=== PATIENT | male | born 1945 | race Caucasian/White ===

== ENCOUNTER → 2017-02-10 | Outpatient (CLI) | payer OTHER ==
[~2017-02-10] MED LIST: IOPAMIDOL (ISOVUE 370) 100 ML BTL IV ONE
== END ==
LOC: FIMAGING 10:05
PROVIDERS: ATTEND Surgery
DX: I71.4 Abdominal aortic aneurysm, without rupture (principal); Z98.890 Other specified postprocedural states; I51.7 Cardiomegaly; D73.89 Other diseases of spleen; K40.90 Unilateral inguinal hernia, without obstruction or gangrene, not specified as recurrent
CPT/HCPCS: 74174; Q9967

== ENCOUNTER 2017-03-15 11:51 | Day surgery (SDC) | payer OTHER ==
[2017-03-15 13:40] VITALS: PULSE 70; RESP 18
--- NOTE | 2017-03-15 13:45 | PDPROPOC ---
Sedation Plan of Care Sedation Plan of Care: vital signs stable, mental status noted, patient educated of risks, benefits, alternatives, patient can tolerate sedation ASA Classification: ASA 3 Planned drugs: fentanyl, midazolam Mallampati Score: Class 1 Mallampati Reference Image: Patient passed 3-3-2 rule?: Yes
--- NOTE | 2017-03-15 13:57 | PDGENHP ---
History & Physical Chief Complaint: AAA History of Present Illness: PATIENT HAS HAD AORTIC STENTGRAFT REPAIR. S/P SAC EMBOLIZATION. NOW ANEURYSM IS STILL GROWING. CTA NOT IDENTIFYING LEAK. HERE FOR ANGIOGRAM AND POSSIBLE EMBOLIZATION. Pertinent Past, Social, Family History: N/A Relevant Physical Exam: LT INGUINAL HERNIA, NO ACCESS FROM LT. RT GROIN ACCESS FOR VISCERAL ANGIOGRAM. Cardiorespiratory Assessment: CTA, RRR. TEMP 99.3
[2017-03-15] MEDS ORDERED: MEPERIDINE 25 MG/ML SYR IVP PRN (14:19)
[2017-03-15] MEDS ORDERED: fentaNYL 100 MCG/2 ML INJ IVP PRN (14:19)
[2017-03-15] MEDS ORDERED: MIDAZOLAM 2 MG/2 ML VIAL IVP PRN (14:19)
[2017-03-15] MEDS ORDERED: FLUMAZENIL 0.5 MG/5 ML MDV IVP PRN (14:19)
[2017-03-15] MEDS ORDERED: NALOXONE HCL 0.4 MG/ML INJ IVP PRN (14:19)
[2017-03-15] MEDS ORDERED: IOPAMIDOL (ISOVUE-300) 100 ML BTL ONE ×3 (14:20→17:10)
[2017-03-15] MEDS ORDERED: MIDAZOLAM 2 MG/2 ML VIAL ONE ×2 (14:23→16:22)
[2017-03-15] MEDS ORDERED: fentaNYL 100 MCG/2 ML INJ ONE ×2 (14:23→16:21)
[2017-03-15] MEDS ORDERED: NS 1,000 ML IV SCH (14:30)
[2017-03-15] MEDS ORDERED: ONDANSETRON 4 MG/2 ML VIAL IVP PRN (17:10)
[2017-03-15] MEDS ORDERED: OXYCODONE/APAP 5/325 TAB PO PRN (17:10)
--- NOTE | 2017-03-15 17:10 | PDRADPN ---
Radiology Procedure Note Date of Procedure: 03/15/17 Radiologist: Angie Sharpe Anesthesia: IV Sedation (FENTANYL AND VERSED) Pre-op Diagnosis: AAA Post-op Diagnosis: ENDOLEAK Indication: ENLARGING AAA AFTER PREVIOUS STENTGRAFT REPAIR AT OUTSIDE HOSPITAL Procedure: ANGIOGRAM WITH EMBOLIZATION Finding(s): ONE LUMBAR ARTERY FED FROM RT IIA THAT WENT TO THE SAC. NO LEAK SEEN, BUT THIS MAY BE A DRAINING ARTERY. EMBOLIZED. SMA ANGIOGRAM AND AORTOGRAM ALL NEGATIVE. Inf/Abcess present in the surg proc area at time of surgery?: No EBL: Minimal Complications: NONE
[2017-03-15 18:19] VITALS: TEMP 97
[2017-03-15 20:05] VITALS: BP 106/63; O2SAT 90
== END 2017-03-15 20:11 | disposition home or self-care (01) ==
LOC: FIMAGING 11:51
PROVIDERS: ATTEND Surgery
PROC: B4101ZZ Fluoroscopy of Abdominal Aorta using Low Osmolar Contrast (ICD-10-PCS; principal; 2017-03-15 17:03)
PROC: 04LE3DZ Occlusion of Right Internal Iliac Artery with Intraluminal Device, Percutaneous Approach (ICD-10-PCS; principal; 2017-03-15 17:03)
PROC: B41FZZZ Fluoroscopy of Right Lower Extremity Arteries (ICD-10-PCS; principal; 2017-03-15 17:03)
DX: T82.330A Leakage of aortic (bifurcation) graft (replacement), initial encounter (principal)
CPT/HCPCS: 36245; 36246; 37242; 75625; 99152; 99153; C1769; C1894; J1644; J2250; J3010; Q9967

== ENCOUNTER 2017-05-10 05:57 | Day surgery (SDC) | payer OTHER ==
[2017-05-10] MEDS ORDERED: LR 1,000 ML IV ONE (06:37)
[2017-05-10 06:43] VITALS: PULSE 88
[2017-05-10] MEDS ORDERED: BUPIVACAINE/EPI 0.5% 30 ML SDV ONE ×2 (06:51→07:24)
[2017-05-10] MEDS ORDERED: LIDOCAINE 1% 300 MG/30 ML SDV ONE (06:52)
--- NOTE | 2017-05-10 07:01 | PDANEPAE ---
ANE History of Present Illness Left ing hernia ANE Past Medical History - Cardiovascular History Hx Hypertension: Yes Hx Arrhythmias: Yes Hx Chest Pain: No Hx Coronary Artery / Peripheral Vascular Disease: Yes Hx CHF / Valvular Disease: Yes Hx Palpitations: No Cardiovascular History Comment: 'Mitral valvue does not close properly'; A Fib. - Pulmonary History Hx COPD: No Hx Asthma/Reactive Airway Disease: No Hx Recent Upper Respiratory Infection: No Hx Oxygen in Use at Home: No Hx Sleep Apnea: Yes Sleep Apnea Screening Result - Last Documented: Positive Pulmonary History Comment: Sleep apnea-wears CPAP every night. - Neurologic History Hx Cerebrovascular Accident: No Hx Seizures: No Hx Dementia: No - Endocrine History Hx Diabetes: No - Renal History Hx Renal Disorders: No - Liver History Hx Hepatic Disorders: No - Neurological & Psychiatric Hx Hx Neurological and Psychiatric Disorders: No - Cancer History Hx Cancer: No - Congenital Disorder History Hx Congenital Disorders: No - GI History Hx Gastrointestinal Disorders: Yes Gastrointestinal History Comment: Hiatal hernia repair. GERD - Chronic Pain History Chronic Pain: Yes (arthritis R knee) - Surgical History Prior Surgeries: -hernia repair x 6- 'mesh put in 15 years ago'. -01/15-3.5 in aneurysm repair. -08/1650-znzabvjov-pdjxzqfa repair. Cardioversion 01/16 ANE Review of Systems Review of Systems: - Exercise capacity METS (RN): 3 METS - Systems Cardiac: Reports: irregular heart rate ANE Patient History - Allergies Allergies/Adverse Reactions: Penicillins Allergy (Unknown, Verified 03/08/17 17:20) Unknown - Home Medications Home Medications: Furosemide mg PO BID 03/08/17 [Last Taken 05/09/17] Metoprolol Tartrate mg PO BID 03/08/17 [Last Taken 03/15/17 07:00] Potassium meq PO BID 03/08/17 [Last Taken 03/15/17 07:00] Warfarin Sodium mg PO DAILY 03/08/17 [Last Taken 05/05/17] - NPO status NPO Since - Liquids (Date): 05/09/17 NPO Since - Liquids (Time): 18:00 NPO Since - Solids (Date): 05/09/17 NPO Since - Solids (Time): 18:00 - Anes Hx Anes Hx: no prior problems - Smoking Hx Smoking Status: Former smoker - Family Anes Hx Family Hx Anesthesia Complications: None ANE Labs/Vital Signs - Vital Signs Blood Pressure: 138/76 Heart Rate: 88 Respiratory Rate: 18 O2 Sat (%): 92 Height: 182.88 cm Weight: 117.934 kg ANE Physical Exam - Airway Neck exam: decreased ROM Mallampati Score: Class 3 Mouth exam: dentures (lower incisors) - Pulmonary Pulmonary: no respiratory distress - Cardiovascular Cardiovascular: irregularly irregular - ASA Status ASA Status: IV ANE Anesthesia Plan Anesthesia Plan: GA w LMA (Plan MAC with possible GA), MAC
--- NOTE | 2017-05-10 07:07 | PDHPUP ---
History & Physical Update H&P update statement: This history and physical update is based on an assessment of the patient which was completed after admission or registration (within 24 hours), but prior to the surgery/procedure. H&P update: H&P reviewed & patient examined, no change in patient's condition since H&P completed
[2017-05-10] MEDS ORDERED: MIDAZOLAM 2 MG/2 ML VIAL ONE (07:09)
--- NOTE | 2017-05-10 07:09 | POSTOPPROG ---
Post Op Note Date of Operation: 05/10/17 Surgeon: Waldemar Toussaint Anesthesiologist: Zen Anesthesia: IV Sedation Pre-op Diagnosis: LIH Post-op Diagnosis: Same Procedure: Open LIH with plug and patch Findings: difficult exposure secondary to obesity, pantaloon defect Inf/Abcess present in the surg proc area at time of surgery?: No EBL: Minimal Complications: no immediate Specimen(s): none
[2017-05-10] MEDS ORDERED: LIDO/EPI 1% **for epidural** 10 ML SDV ONE (07:10)
[2017-05-10] MEDS ORDERED: ceFAZolin 2 GM/DEXTROSE 100 ML IV ONE (07:15)
[2017-05-10] MEDS ORDERED: fentaNYL 100 MCG/2 ML INJ ONE (07:18)
[2017-05-10] MEDS ORDERED: PROPOFOL/EMULSION 500 MG/50 ML BOTTLE IV ONE (07:18)
[2017-05-10] MEDS ORDERED: LIDO/EPI 1% **for epidural** 30 ML SDV ONE ×2 (07:24→08:59)
[2017-05-10] MEDS ORDERED: ceFAZolin 1 GM VIAL ONE ×2 (07:25)
[2017-05-10] MEDS ORDERED: ceFAZolin 2 GM/SWFI 2 GM/20 ML SYR IVP ONE (07:30)
[2017-05-10] MEDS ORDERED: PROPOFOL 200 MG/20 ML VIAL ONE ×3 (07:46→08:26)
[2017-05-10] MEDS ORDERED: HYDROmorphONE/DILAUDID 1 MG/ML INJ IVP PRN (07:58)
[2017-05-10] MEDS ORDERED: fentaNYL 100 MCG/2 ML INJ IVP PRN (07:58)
[2017-05-10] MEDS ORDERED: NALOXONE HCL 0.4 MG/ML INJ IVP PRN ×2 (07:58→08:58)
[2017-05-10] MEDS ORDERED: ONDANSETRON 4 MG/2 ML VIAL IVP PRN (07:58)
[2017-05-10] MEDS ORDERED: ONDANSETRON 4 MG/2 ML VIAL ONE (08:28)
--- NOTE | 2017-05-10 09:02 | POSTANESTH ---
Post Anesthetic Evaluation Cardiovascular Status: Similar to Pre-Op Cond Respiratory Status: Similar to Pre-op Cond. Level of Consciousness/Mental Status: Can Participate in Eval Pain Control: Adequate, Prn Tx Ordered Nausea/Vomiting Control: Adequate, Prn Tx Ordered Complications Possibly Related to Anesthesia: None Noted
[2017-05-10 09:43] VITALS: RESP 18
[2017-05-10 11:47] VITALS: BP 108/59; O2SAT 92
[2017-05-10 11:59] VITALS: TEMP 98.2
--- NOTE | 2017-05-10 12:25 | GOP ---
[f rep st] OPERATIVE REPORT DATE OF OPERATION: 05/10/2017 SURGEON: Waldemar Toussaint MD ANESTHESIA: MAC ANESTHESIOLOGIST: Waldemar Zaldivar MD PREOPERATIVE DIAGNOSIS: Left inguinal hernia. POSTOPERATIVE DIAGNOSIS: Left inguinal hernia. PROCEDURE PERFORMED: Open left inguinal herniorrhaphy with Marlex mesh plug and patch. FINDINGS: Pantaloon defect. INDICATIONS: 71-year-old obese male with a symptomatic left inguinal hernia. He is undergoing surgical repair at this time. Risks and benefits were explained of bleeding, infection, recurrence, as well as nerve and/or testicle injury. All questions were answered. He desires to proceed. DESCRIPTION OF PROCEDURE: Monitored anesthesia was started. The groin was infiltrated with 1% lidocaine and 0.5% Marcaine along the ilioinguinal nerve as well as the groin crease. A transverse incision was created toward the pubic tubercle. Subcutaneous tissues were divided down to the external oblique fascia. The external oblique fascia was opened through the external ring. The spermatic cord was circumferentially encompassed. There was a very large, chronic indirect sac inclusive of colon as well as omentum and tenia. The sac was skeletonized off the cord structures and reduced back toward the abdominal space. There was also evidence of a large direct space defect with protruding preperitoneal fat. This space was preperitonealized. An extra-large plug was placed into the indirect space and a large plug placed into the direct space. The onlay patch was secured to the pubic tubercle and secured to the shelving edge of the inguinal ligament as well as the conjoined tendon. Exposure was quite tedious given the patient's significant obesity. Excellent coverage of the inguinal floor was felt obtained upon completion. Satisfactory hemostasis was assured. The external oblique fascia was closed over the cord structures. The wound was closed in layers with absorbable sutures followed by Dermabond. The patient was taken to Recovery uneventfully. /[id number]/MODL MTDD
== END 2017-05-10 11:47 | disposition home or self-care (01) ==
LOC: FSGY 05:57
PROVIDERS: ATTEND Surgery
PROC: 0YU60JZ Supplement Left Inguinal Region with Synthetic Substitute, Open Approach (ICD-10-PCS; principal; 2017-05-10 07:15)
DX: K40.90 Unilateral inguinal hernia, without obstruction or gangrene, not specified as recurrent (principal); I71.4 Abdominal aortic aneurysm, without rupture; E66.9 Obesity, unspecified; Z68.35 Body mass index [BMI] 35.0-35.9, adult; I48.91 Unspecified atrial fibrillation; I50.9 Heart failure, unspecified; K21.9 Gastro-esophageal reflux disease without esophagitis; G47.33 Obstructive sleep apnea (adult) (pediatric); Z79.01 Long term (current) use of anticoagulants
CPT/HCPCS: C1781; J0171; J0690; J2250; J2405; J2704; J3010

== ENCOUNTER → 2017-05-31 | Outpatient (CLI) | payer OTHER ==
[~2017-05-31] MED LIST changes: -IOPAMIDOL (ISOVUE 370) 100 ML BTL IV ONE; +IOPAMIDOL (ISOVUE-370) 150 ML BTL IV ONE
== END ==
LOC: FIMAGING 08:00
PROVIDERS: ATTEND Surgery
DX: I71.4 Abdominal aortic aneurysm, without rupture (principal); R22.43 Localized swelling, mass and lump, lower limb, bilateral
CPT/HCPCS: 75635; Q9967

== ENCOUNTER → 2018-02-09 | Outpatient (CLI) | payer OTHER ==
[~2018-02-09] MED LIST changes: +IOPAMIDOL (ISOVUE 370) 100 ML BTL IV ONE; -IOPAMIDOL (ISOVUE-370) 150 ML BTL IV ONE
== END ==
LOC: FIMAGING 11:10
PROVIDERS: ATTEND Surgery
DX: I71.4 Abdominal aortic aneurysm, without rupture (principal)
CPT/HCPCS: 74174; Q9967

== ENCOUNTER 2018-02-23 07:12 | Day surgery (SDC) | payer OTHER ==
[2018-02-23 09:07] LABS: INR 1.21 (0.83-1.16); PROTIME(PATIENT) 15.5 SEC (12.0-15.0)
[2018-02-23] MEDS ORDERED: fentaNYL 100 MCG/2 ML INJ ONE (09:30)
[2018-02-23] MEDS ORDERED: MIDAZOLAM 2 MG/2 ML VIAL ONE (09:30)
[2018-02-23] MEDS ORDERED: FLUMAZENIL 0.5 MG/5 ML MDV IVP PRN (09:41)
[2018-02-23] MEDS ORDERED: NALOXONE HCL 0.4 MG/ML INJ IVP PRN (09:41)
[2018-02-23] MEDS ORDERED: GLUCAGON HCL 1 MG VIAL IVP PRN (09:41)
[2018-02-23] MEDS ORDERED: HEPARIN 10,000 UNIT/10 ML MDV (1,000 UNIT/ML) IVP PRN (09:41)
[2018-02-23] MEDS ORDERED: fentaNYL 100 MCG/2 ML INJ IVP PRN (09:41)
[2018-02-23] MEDS ORDERED: MIDAZOLAM 2 MG/2 ML VIAL IVP PRN (09:41)
[2018-02-23] MEDS ORDERED: ALTEPLASE 2 MG VIAL IVP PRN (09:41)
[2018-02-23] MEDS ORDERED: MEPERIDINE 25 MG/ML SYR IVP PRN (09:41)
[2018-02-23] MEDS ORDERED: PROTAMINE SULFATE 50 MG/5 ML VIAL IVP PRN (09:41)
[2018-02-23] MEDS ORDERED: NS 1,000 ML IV SCH (09:45)
[2018-02-23] MEDS ORDERED: IOPAMIDOL (ISOVUE-300) 100 ML BTL ONE (10:01)
[2018-02-23] MEDS ORDERED: ONDANSETRON 4 MG/2 ML VIAL IVP PRN (10:37)
[2018-02-23] MEDS ORDERED: ACETAMINOPHEN 325 MG TAB PO PRN (10:37)
--- NOTE | 2018-02-23 10:37 | PDGENHP ---
History & Physical Chief Complaint: continued AAA increase History of Present Illness: post stentgraft repair at another hospital. continued sac increase. previous angiograms did not show leak. post transarterial embolization. sacogram today. Pertinent Past, Social, Family History: on CPAP. Relevant Physical Exam: comfortable today. no complaints. Cardiorespiratory Assessment: rrr, cta
--- NOTE | 2018-02-23 10:40 | PDRADPN ---
Radiology Procedure Note Date of Procedure: 02/23/18 Radiologist: Angie Sharpe Anesthesia: IV Sedation Pre-op Diagnosis: endoleak Post-op Diagnosis: same Indication: enlarging AAA sac Procedure: sacogram Finding(s): type I and type V endoleak Inf/Abcess present in the surg proc area at time of surgery?: No
[2018-02-23 12:08] VITALS: BP 117/80
[2018-02-23] MEDS ORDERED: LIDOCAINE 1% 300 MG/30 ML SDV ONE (13:20)
== END 2018-02-23 11:58 | disposition home or self-care (01) ==
LOC: FIMAGING 07:12
PROVIDERS: ATTEND Radiology Diagnostic Radiology
DX: I71.4 Abdominal aortic aneurysm, without rupture (principal)
CPT/HCPCS: 36200; 75625; 76937; 99152; C1769; C1894; J1644; J2250; J3010; Q9967

== ENCOUNTER 2018-03-30 09:51 | Inpatient (IN) | payer OTHER ==
[2018-03-30] MEDS ORDERED: LR 1,000 ML IV ONE ×2 (10:56→12:32)
--- NOTE | 2018-03-30 11:33 | PDANEPAE ---
ANE History of Present Illness 72 yo for iliac stent placement ANE Past Medical History - Cardiovascular History Hx Hypertension: No Hx Arrhythmias: Yes Hx Chest Pain: No Hx Coronary Artery / Peripheral Vascular Disease: Yes Hx CHF / Valvular Disease: Yes Hx Palpitations: No Cardiovascular History Comment: Mitral valve does not close properly. A Fib. w / cardioversion x2 - were unsuccessful, pt continues to live in A-fib. Cardiomegaly. AAA - Pulmonary History Hx COPD: No Hx Asthma/Reactive Airway Disease: No Hx Recent Upper Respiratory Infection: No Hx Oxygen in Use at Home: No Hx Sleep Apnea: Yes Sleep Apnea Screening Result - Last Documented: Positive Pulmonary History Comment: Regular morning productive cough with small about of Phlem;. Sleep apnea-wears CPAP every night. - Neurologic History Hx Cerebrovascular Accident: No Hx Seizures: No Hx Dementia: No - Endocrine History Hx Diabetes: No - Renal History Hx Renal Disorders: No - Liver History Hx Hepatic Disorders: No - Neurological & Psychiatric Hx Hx Neurological and Psychiatric Disorders: No - Cancer History Hx Cancer: No - Congenital Disorder History Hx Congenital Disorders: No - GI History Hx Gastrointestinal Disorders: Yes Gastrointestinal History Comment: Hiatal hernia repairs - Other Health History Other Health History: Wears glasses. Arthritis. Gout. full upper plate, partial on bottom - Chronic Pain History Chronic Pain: Yes (arthritis R knee) - Surgical History Prior Surgeries: IR Abd angiogram w/ embolization, 01/2018. -R foot/ankle;. - hernia repair x 6- 'mesh put in 15 years ago';. -01/15-3.5 in aneurysm repair; . -08/1647-iaukybpya-gwgszygp repair;. -AAA feeder Embolization w/ Dr. Sharpe;. - Cardioversion 01/16;. Bilat Cataract; detached B retina sx;. scleral buckel B eye; ANE Review of Systems Review of Systems: - Exercise capacity METS (RN): 3 METS ANE Patient History - Allergies Allergies/Adverse Reactions: Penicillins Allergy (Verified 03/21/18 10:33) Pt does not recall reaction; from as a child - Home Medications Home medications: home medication list seen and reviewed Home Medications: Furosemide 40 mg PO BID 03/08/17 [Last Taken 02/22/18] Metoprolol Tartrate 25 mg PO BID 03/08/17 [Last Taken 02/23/18 08:00] Potassium 20 meq PO BID 03/08/17 [Last Taken 02/22/18] Warfarin Sodium 4 mg PO MWF 03/08/17 [Last Taken 02/17/18] Allopurinol 100 MG (*) 100 mg PO DAILY 02/20/18 [Last Taken 02/23/18 08:00] Warfarin Sodium 2 mg PO TUTHSA 02/20/18 [Last Taken 02/17/18] Adult One Daily Multivit Tab 03/21/18 [Last Taken Unknown] Co Q-10 03/21/18 [Last Taken Unknown] Fish Oil [place]-3 Softgel 03/21/18 [Last Taken Unknown] Folic Acid 03/21/18 [Last Taken Unknown] Vitamin C 03/21/18 [Last Taken Unknown] Warfarin Sodium mg PO SU19 03/21/18 [Last Taken Unknown] - NPO status NPO Status: no food or drink >8 hours NPO Since - Liquids (Date): 03/30/18 NPO Since - Liquids (Time): 08:00 NPO Since - Solids (Date): 03/29/18 NPO Since - Solids (Time): 17:00 - Smoking Hx Smoking Status: Former smoker - Family Anes Hx Family Hx Anesthesia Complications: None ANE Labs/Vital Signs - Vital Signs Blood Pressure: 131/60 Heart Rate: 69 Respiratory Rate: 14 O2 Sat (%): 92 Height: 6 ft Weight: 115.666 kg ANE Physical Exam - Airway Neck exam: FROM Mallampati Score: Class 2 Mouth exam: dentures - Pulmonary Pulmonary: no respiratory distress - Cardiovascular Cardiovascular: regular rate and rhythym - ASA Status ASA Status: III ANE Anesthesia Plan Anesthesia Plan: general endotracheal anesthesia
[2018-03-30] MEDS ORDERED: REMIFENTANIL HCL 1 MG VIAL ONE ×2 (11:36→14:18)
[2018-03-30] MEDS ORDERED: fentaNYL 100 MCG/2 ML INJ ONE ×2 (11:36→16:45)
[2018-03-30] MEDS ORDERED: PROPOFOL/EMULSION 500 MG/50 ML BOTTLE IV ONE ×2 (11:37→14:18)
[2018-03-30] MEDS ORDERED: ROCURONIUM 50 MG/5 ML VIAL ONE (11:38)
[2018-03-30 12:23] LABS: INR 1.34 (0.83-1.16); PROTIME(PATIENT) 16.8 SEC (12.0-15.0)
[2018-03-30] MEDS ORDERED: HEPARIN 10,000 UNIT/10 ML MDV (1,000 UNIT/ML) IVP PRN (12:32)
[2018-03-30] MEDS ORDERED: PROTAMINE SULFATE 50 MG/5 ML VIAL IVP PRN (12:32)
[2018-03-30] MEDS ORDERED: ceFAZolin 2 GM/DEXTROSE 100 ML IV ONE (12:32)
[2018-03-30] MEDS ORDERED: CEFAZOLIN 2 GM/DEXTROSE/100 ML BAG IV ONE (12:36)
[2018-03-30 12:58] LABS: PLATELET COUNT 130 10^3/uL (150-400)
[2018-03-30] MEDS ORDERED: BUPIVACAINE/EPI 0.5% 30 ML SDV ONE (13:34)
[2018-03-30] MEDS ORDERED: THROMBIN (BOVINE) 20,000 UNIT SPRAY TP ONE (13:34)
[2018-03-30] MEDS ORDERED: IOPAMIDOL (ISOVUE-300) 100 ML BTL ONE ×3 (14:57→18:33)
[2018-03-30] MEDS ORDERED: PROPOFOL 200 MG/20 ML VIAL ONE (16:45)
[2018-03-30] MEDS ORDERED: fentaNYL 100 MCG/2 ML INJ IVP PRN (18:10)
[2018-03-30] MEDS ORDERED: NALOXONE HCL 0.4 MG/ML INJ IVP PRN (18:10)
[2018-03-30] MEDS ORDERED: ONDANSETRON 4 MG/2 ML VIAL IVP PRN ×2 (18:10→18:23)
--- NOTE | 2018-03-30 18:11 | POSTANESTH ---
Post Anesthetic Evaluation Cardiovascular Status: Normal, Stable Respiratory Status: Tx Decrease in SpO2 Level of Consciousness/Mental Status: Mildly Sleepy, Arousable Pain Control: Adequate, Prn Tx Ordered Nausea/Vomiting Control: Adequate, Prn Tx Ordered Complications Possibly Related to Anesthesia: None Noted
[2018-03-30] MEDS ORDERED: OXYCODONE/APAP 5/325 TAB PO PRN (18:23)
[2018-03-30] MEDS ORDERED: POLYETHYLENE GLYCOL 3350 17 GM PKT PO PRN (18:23)
[2018-03-30] MEDS ORDERED: MAGNESIUM HYDROXIDE 30 ML UDCUP PO PRN (18:23)
[2018-03-30] MEDS ORDERED: LACTULOSE 20 GM/30 ML UDCUP PO PRN (18:23)
[2018-03-30] MEDS ORDERED: ONDANSETRON DISINTEGRATING 4 MG TAB PO PRN (18:23)
[2018-03-30] MEDS ORDERED: BISACODYL 10 MG SUPP PR PRN (18:23)
--- NOTE | 2018-03-30 18:29 | PDRADPN ---
Radiology Procedure Note Date of Procedure: 03/30/18 Radiologist: Angie Sharpe Anesthesia: GET(General Endotracheal) Pre-op Diagnosis: endoleak Post-op Diagnosis: SAME Indication: enlarging sac Procedure: iliac angiogram; aortogram; embolization LT internal iliac artery; limb ext Inf/Abcess present in the surg proc area at time of surgery?: No
--- NOTE | 2018-03-30 18:46 | POSTOPPROG ---
Post Op Note Date of Operation: 03/30/18 Surgeon: Waldemar Toussaint Health And Safety Advisor: Angie Sharpe Anesthesiologist: Danny Akbar Anesthesia: GET(General Endotracheal) Pre-op Diagnosis: AAA, endoleak Post-op Diagnosis: Same Procedure: Left ileo femoral cutdown with arterial repair Inf/Abcess present in the surg proc area at time of surgery?: No EBL: 50-100 Specimen(s): none
[2018-03-30] MEDS: SENNOSIDES/DOCUSATE SODIUM TAB PO SCH (21:40)
[2018-03-31 04:59] LABS: PLATELET COUNT 124 10^3/uL (150-400)
--- NOTE | 2018-03-31 07:30 | GOP ---
DATE OF OPERATION: 03/30/2018 SURGEON: Waldemar Toussaint MD INTERVENTIONAL RADIOLOGIST: Angie Sharpe MD PREOPERATIVE DIAGNOSIS: Enlarging abdominal aortic aneurysm status post endovascular aortic repair. POSTOPERATIVE DIAGNOSIS: Enlarging abdominal aortic aneurysm status post endovascular aortic repair. PROCEDURE PERFORMED: Left iliofemoral artery cutdown with repair of arteriotomy. FINDINGS: See below. INDICATIONS: 72-year-old male status post remote endovascular aortic aneurysm repair. He has a progressively enlarging aneurysm sac. He has undergone multiple procedures in efforts to contain his ill-defined endoleak. On a recent sacogram, he was found to have filling of his left external iliac artery limb with this being a suspect area of leakage. He is undergoing endovascular left iliac arm limb extension. Surgery is providing open vascular access given the patient's prior left limb interventions. The risks and benefits were explained of bleeding, infection, nerve injury, need for additional revascularization procedures, persistent endoleak, and need for additional surgical intervention. All questions were answered. He desires to proceed. DESCRIPTION OF PROCEDURE: General anesthesia was induced. Percutaneous access was initially obtained of the left groin by Dr. Sharpe. Initial access site in this morbidly obese male was initially placed within the distal external iliac artery just above the inguinal ligament. Diagnostic angiography studies were completed. No further areas of leakage were identified. Open cutdown prior to large bore sheath placement and limb extension was next initiated. Accordingly , a longitudinal incision was created along the percutaneous access site which was fashioned in the left lower quadrant. This was taken down to the level of the iliofemoral artery. The external oblique fascia was partially divided allowing for dissection toward the proximal common femoral artery. There was extensive scarification along this arterial segment given the patient's prior open vessel exploration. Using sharp dissection, the vessel was tediously dissected away from the common femoral vein and circumferentially encompassed and tagged with a vessel loop. The dissection was taken proximally toward the level of the initial needle access site. Rather than dissecting further proximal into the retroperitoneum, adequate exposure was able to be obtained to allow for this needle to be withdrawn and closed with a StarClose device. A subsequent puncture directly into the common femoral artery was able to be accomplished for large-bore sheath placement. This was subsequently performed by Dr. Sharpe, and limb extension subsequently placed. Upon completion of the endovascular portion of the repair, the artery was reexplored. An Amplatz wire was placed up the large-bore sheath to maintain arterial access. The sheath was able to be withdrawn and a Satinsky clamp able to be placed along the anterior aspect of the artery. After placement of stay sutures, the sheath was removed and the artery forebled. Satisfactory hemostasis was safely obtained with the use of a vascular clamp. The arteriotomy was closed transversely with running 5-0 Prolene sutures. Upon release of the arterial clamp, excellent hemostasis was assured as the guidewire was removed. Excellent pulsatile inflow was present throughout the common femoral artery, as was a palpable pulse within the foot. The external oblique fascia was closed with a running Vicryl suture. The wound was closed in layers with absorbable suture followed by Dermabond. Local anesthetic had been infiltrated throughout the wound. The patient was extubated in the interventional suite and taken to recovery uneventfully. /[id number]/MODL MTDD
[2018-03-31 07:52] VITALS: BP 113/60
[2018-03-31] MEDS: SENNOSIDES/DOCUSATE SODIUM TAB PO SCH (09:08)
--- NOTE | 2018-03-31 09:38 | ASMTCASEMG ---
Living Arrangements What is your living Answers: With Spouse arrangement? Who do you live with? Type Of Residence What kind of residence do Answers: House you live in? Discharge Plan Comments Coordination Status Comments Notes: Patient is a 72yo male who was admitted for an enlarging abdominal aortic aneurysm status post endovascular aortic repair. No therapies ordered at this time. D/C plan TBD. CM will follow. Date Signed: 03/31/2018 09:37 AM Electronically Signed By:Chelsey Kyle LCSW
--- NOTE | 2018-03-31 10:11 | SOAPPROG ---
SOAP Progress Note Assessment/Plan: Assessment:no overnight issues. min pain. no cp or sob. no abd c/o. avss. abd soft. groin incision clean. no erythema. 2+ DP. doing well. menon removed. home today. Plan: 03/31/18 10:10 Objective: Vital Signs Temp Pulse Resp BP Pulse Ox 36.6 C 81 16 113/60 90 L 03/31/18 04:00 03/31/18 07:56 03/31/18 07:56 03/31/18 07:56 03/31/18 07:56 Laboratory Results 03/31/18 04:20 03/30/18 12:28 03/30/18 03/31/18 04/01/18 05:59 05:59 05:59 Intake Total 1225 Output Total 1450 Balance -225 PT 16.8 SEC (12.0-15.0) H 03/30/18 11:00 INR 1.34 (0.83-1.16) H 03/30/18 11:00 ICD10 Worksheet Patient Problems: Problems Problem Status Onset AAA (abdominal aortic aneurysm) Acute Inguinal hernia Acute
--- NOTE | 2018-03-31 10:17 | PDMN ---
Medical Necessity Medical necessity: [facility] [place] S131 AAA, endovascular repair 1 day INPT only: OP : L ileo femoral cutdown with arterial repair, - iliac angiogram, aortogram, embolization L internal iliac artery, limb ext. CPT 24641
== END 2018-03-31 10:50 | disposition home or self-care (01) | DRG 271 ==
LOC: FIMAGING 09:51 → F2N 19:30
PROVIDERS: ADMIT Radiology Diagnostic Radiology; ATTEND Radiology Diagnostic Radiology
DX: T82.330A Leakage of aortic (bifurcation) graft (replacement), initial encounter (principal); I42.0 Dilated cardiomyopathy; I50.32 Chronic diastolic (congestive) heart failure; I25.10 Atherosclerotic heart disease of native coronary artery without angina pectoris; I48.2 Chronic atrial fibrillation; I34.0 Nonrheumatic mitral (valve) insufficiency; E66.01 Morbid (severe) obesity due to excess calories; N18.3 Chronic kidney disease, stage 3 (moderate); F17.210 Nicotine dependence, cigarettes, uncomplicated
CPT/HCPCS: C1725; C1769; C1874; C1892; C1894; J0690; J1644; J2704; J3010; Q9967

== ENCOUNTER → 2018-08-28 | Outpatient (CLI) | payer OTHER | LOC: EMCIMAGING 14:44 | PROVIDERS: ATTEND Radiology Diagnostic Radiology | DX: I71.4 Abdominal aortic aneurysm, without rupture (principal) | CPT/HCPCS: 74174-PN ==